=== PATIENT | male | born 1985 | race Caucasian/White ===

== ENCOUNTER 2021-01-23 13:03 | Emergency (ER) | payer OTHER ==
[~2021-01-23] VITALS: Ht 185.5 cm; Wt 127.0 kg
[~2021-01-23 13:03] MED LIST: CLCX100C; CYCL10TA9; ONDAN4ODT PO
[2021-01-23] MEDS ORDERED: fentaNYL INJECTION 100 MCG/2 ML AMP IVP ONE (13:30)
--- NOTE | 2021-01-23 13:36 | ED Upper Extremity ---
General Chief Complaint: Laceration Stated Complaint: L THUMB LAC TO BONE Source: patient Exam Limitations: no limitations History of Present Illness Date Seen by Provider: Jan 23, 2021 Time Seen by Provider: 13:17 Initial Comments Patient presents ER by private conveyance from work where he was using an angle salvage grinder and incidentally ground the base off of his left thumbnail. He rates his pain as 9 out of 10. He says in the past he has not tolerated morphine or fentanyl very well because it makes him very wired but he does tolerate hydrocodone. He has sensation in his distal fingertip. No other history of surgery or fracture to his thumb. Last tetanus vaccine was about 8 years ago. Allergies and Home Medications Allergies Coded Allergies: meperidine (Verified Allergy, Mild, 08/17/09) Home Medications Cephalexin 500 Mg Tablet, 500 MG PO TID Prescribed by: ALL KHALIL on 01/23/21 1431 Hydrocodone/Acetaminophen 1 Each Tablet, 1 TAB PO Q4H PRN for PAIN-MODERATE (5- 7) Prescribed by: ALL KHALIL on 01/23/21 1431 Ondansetron 4 Mg Tab.rapdis, 4 MG PO Q6H PRN for NAUSEA/VOMITING Prescribed by: ALL KHALIL on 01/23/21 1431 Ondansetron Hcl 4 Mg Tab, 4 MG PO Q4H FOR VOMITING Prescribed by: ERIKA GAUTAM on 08/17/09 2340 Patient Home Medication List Home Medication List Reviewed: Yes Review of Systems Constitutional: No chills, No diaphoresis EENTM: No ear discharge, No hearing loss Cardiovascular: No chest pain, No palpitations Gastrointestinal: No abdominal pain, No vomiting Genitourinary: No discharge, No dysuria Musculoskeletal: see HPI; No back pain; joint pain All Other Systems Reviewed Negative Unless Noted: Yes Past Gvinojh-Bgezaz-Fjaifw Hx Patient Social History Alcohol Use: Denies Use Smoking Status: Never a Smoker Physical Exam Vital Signs Vital Signs - First Documented 01/23/21 13:18 Pulse 89 Resp 20 B/P (MAP) 148/91 (110) Pulse Ox 98 O2 Delivery Room Air Capillary Refill : Height, Weight, BMI Height: '" Weight: lbs. oz. kg; BMI Method: General Appearance: WD/WN, moderate distress HEENT: PERRL/EOMI, pharynx normal Neck: full range of motion, normal inspection Cardiovascular: normal peripheral pulses, regular rate, rhythm Respiratory: no respiratory distress, no accessory muscle use Wrist: Yes normal inspection, Yes non-tender, Yes no evidence of injury, Yes normal ROM (Left) Hand: nail injury (Round divot in the shape of a salvage grinder wheel approximately 3 cm long along the base of the left thumbnail with slow oozing bleeding.) Procedures/Interventions Wound Location: Upper Extremities Other Wound Location Left thumb dorsal at the base of the thumbnail Wound Length (cm): 3 Wound's Depth, Shape: bone Wound Explored: no foreign body removed Irrigated w/ Saline (ccs): 250 Betadine Prep?: Yes Anesthesia: 1% Lidocaine Volume Anesthetic (ccs): 6 Wound Debrided: minimal Suture: Ethlion Suture Size: 4-0 Number of Sutures: 3 Layer Closure?: 1 Sterile Dressing Applied?: Yes Progress Site was cleaned and soaked with chlorhexidine and sterile saline then soaked with Betadine. Wound was hemostatic and we put a tourniquet on flush the wound out with sterile saline and reapproximated the fragment of thumbnail to the proximal skin using 3 stitches simple, interrupted 4-0 Ethilon. Had a difficult time obtaining good anesthesia using a digital block so use in the wound local anesthesia from lidocaine as well. Progress/Results/Core Measures Results/Orders My Orders Orders - ALL KHALIL Fentanyl Injection (Sublimaze Injection (01/23/21 13:30) Dipht,Pertuss(Acell),Tet Adult (Boostrix (01/23/21 13:45) Hydrocodone/Apap 5/325 Tablet (Lortab 5 (01/23/21 13:45) Finger(S) (01/23/21 13:37) Medications Given in ED Current Medications Medications Dose Ordered Sig/Ruben Route Start Time Stop Time Status Last Admin Dose Admin Acetaminophen/ Hydrocodone Bitart 1 ea ONCE ONCE PO 01/23/21 13:45 01/23/21 13:46 DC 01/23/21 14:16 1 EA Diphtheria/ Tetanus/Acell Pertussis 0.5 ml ONCE ONCE IM 01/23/21 13:45 01/23/21 13:46 DC 01/23/21 14:17 0.5 ML Vital Signs/I&O 01/23/21 01/23/21 13:18 14:44 Pulse 89 88 Resp 20 17 B/P (MAP) 148/91 (110) 144/86 Pulse Ox 98 99 O2 Delivery Room Air Room Air Progress Progress Note : Time: 13:36 Progress Note We will give him a tetanus vaccine, hydrocodone and we started a nerve block on his thumb and will allow that to set up. Then we will go and so his thumb together. He is going to lose his thumbnail. Diagnostic Imaging Diagonstic Imaging: Xray Plain Films/CT/US/NM/MRI: hand Comments NAME: FAINA SOLORZANO MED REC#: [id number] PT STATUS: REG ER : 1985 PHYSICIAN: ALL KHALIL MD ADMIT DATE: 01/23/21/ER Draft Date of Exam:01/23/21 FINGER(S) INDICATION: Finger pain, saw blade injury COMPARISON: None available TECHNIQUE: 3 radiographs centered upon the left hand 1st digit are obtained dated 01/23/2021 FINDINGS: Acute obliquely oriented fracture is identified extending across the tuft of the 1st digit distal phalanx. Fracture is minimally distracted though not significantly displaced. This is associated with overlying soft tissue injury involving the dorsum of the finger and possibly fingernail. Multiple minimal punctate radiopaque densities are identified within the soft tissues of this region, particularly dorsally. No additional acute fracture or dislocation. No destructive osseous process. IMPRESSION: Acute minimally distracted oblique fracture involving the tuft of the 1st digit distal phalanx with associated overlying soft tissue injury and probable minimal punctate radiopaque densities/foreign bodies. Dictated on workstation # [id number] Dict: 01/23/21 1429 Trans: 01/23/21 1435 [facility], [place] [id number] Interpreted by: ALEC MOTT MD Electronically signed by: Reviewed: Reviewed by Me Departure Impression Primary Impression: Laceration of thumb with damage to nail Qualified Codes: S61.112A - Laceration without foreign body of left thumb with damage to nail, initial encounter Additional Impression: Fracture of thumb, left, open Qualified Codes: S62.525B - Nondisplaced fracture of distal phalanx of left thumb, initial encounter for open fracture Disposition: 01 HOME, SELF-CARE Condition: Improved Departure-Patient Inst. Decision time for Depature: 14:26 Referrals: MITCHELL STEELE DO NO,LOCAL PHYSICIAN (PCP) Primary Care Physician Patient Instructions: Laceration Repair With Stitches (DC) Add. Discharge Instructions: Keep the wounds clean with regular soap and water only. Do not use hydrogen peroxide, alcohol, iodine or chlorhexidine. Change the dressing as often as it becomes soiled or at least daily. You may use Vaseline or a Vaseline dressing such as Xeroform over the sutures to keep them from sticking to the dressing. Gauze dry bulky dressing with some compression to reduce swelling and pain. There is a fracture of the distal tip of your thumb and you should wear the splint until you see the orthopedic surgeon within the next week. Elevate your arm above the level of your heart for swelling and pain. Do not use your left arm until cleared by the surgeon. Keflex 1 capsule 3 times a day for the next week to prevent infection. Return to the ER if you are having fever, nausea or redness running up your arm. Tylenol and Motrin as necessary for pain. Ice as necessary for pain. Hydrocodone 1 tablet every 4 hours as necessary for breakthrough pain. All discharge instructions reviewed with patient and/or family. Voiced understanding. Scripts Hydrocodone/Acetaminophen (Hydrocodone-Acetamin 5-325 mg) 1 Each Tablet 1 TAB PO Q4H PRN for PAIN-MODERATE (5-7), #20 TAB 0 Refills Prov: LAL KHALIL 01/23/21 Cephalexin (Cephalexin) 500 Mg Tablet 500 MG PO TID for 7 Days, #21 TAB 0 Refills Prov: ALL KHALIL 01/23/21 Ondansetron (Ondansetron Odt) 4 Mg Tab.rapdis 4 MG PO Q6H PRN for NAUSEA/VOMITING, #8 TAB 0 Refills Prov: ALL KHALIL 01/23/21 Work/School Note: Work Release Form Date Seen in the Emergency Department: Jan 23, 2021 Return to Work: Jan 26, 2021 Restrictions: Need Release from Doctor Other Restrictions Listed Below: Do not use left arm and keep the dressing clean, dry and intact. Copy Copies To 1: MITCHELL STEELE TITUS J Jan 23, 2021 13:36
[2021-01-23] MEDS ORDERED: HYDROcodone/APAP 5 MG/325 MG (LORTAB) TAB PO ONE (13:45)
[2021-01-23] MEDS ORDERED: TETANUS,DIPTH,PERTUSS P/F (BOOSTRIX) 0.5 ML VIAL IM ONE (13:45)
[2021-01-23] MEDS ORDERED: CEPH500T PO (14:31)
[2021-01-23] MEDS ORDERED: ONDA4TAB11 PO (14:31)
[2021-01-23] MEDS ORDERED: ACHD5005 PO (14:31)
--- NOTE | 2021-01-23 14:35 | Diagnostic Imaging Report ---
INDICATION: Finger pain, saw blade injury COMPARISON: None available TECHNIQUE: 3 radiographs centered upon the left hand 1st digit are obtained dated 01/23/2021 FINDINGS: Acute obliquely oriented fracture is identified extending across the tuft of the 1st digit distal phalanx. Fracture is minimally distracted though not significantly displaced. This is associated with overlying soft tissue injury involving the dorsum of the finger and possibly fingernail. Multiple minimal punctate radiopaque densities are identified within the soft tissues of this region, particularly dorsally. No additional acute fracture or dislocation. No destructive osseous process. IMPRESSION: Acute minimally distracted oblique fracture involving the tuft of the 1st digit distal phalanx with associated overlying soft tissue injury and probable minimal punctate radiopaque densities/foreign bodies. Dictated by: Dictated on workstation # [id number]
[2021-01-23 14:44] VITALS: BP 144/86
== END 2021-01-23 14:44 | disposition home or self-care (01) ==
LOC: EDUNIT# 13:03 → ER 13:06
DX: S62.522A Displaced fracture of distal phalanx of left thumb, initial encounter for closed fracture (principal); Z88.5 Allergy status to narcotic agent; Z23 Encounter for immunization; W22.8XXA Striking against or struck by other objects, initial encounter
CPT/HCPCS: 12031; 73140; 90715

== ENCOUNTER 2021-04-23 07:57 | Outpatient (RCR) | payer OTHER ==
[~2021-04-23 07:57] MED LIST changes: +ACHD5005 PO; +CEPH500T PO; +ONDA4TAB11 PO
== END 2021-05-10 | disposition home or self-care (01) ==
PROVIDERS: ATTEND Nurse Practitioner
DX: Z98.890 Other specified postprocedural states (principal)

== ENCOUNTER 2021-05-26 08:15 | Outpatient (RCR) | payer OTHER | END 2021-08-11 | disposition home or self-care (01) | PROVIDERS: ATTEND Nurse Practitioner | DX: S62.522D Displaced fracture of distal phalanx of left thumb, subsequent encounter for fracture with routine healing (principal); X58.XXXD Exposure to other specified factors, subsequent encounter ==